=== PATIENT | female | born 2000 | race Caucasian/White ===

== ENCOUNTER 2023-04-09 19:36 | Emergency (ER) | payer BC, SELFPAY ==
--- NOTE | 2023-04-09 | ECG_ITS ---
Test Reason : WEAKNESS Blood Pressure : / mmHG Vent. Rate : 090 BPM Atrial Rate : 090 BPM P-R Int : 128 ms QRS Dur : 084 ms QT Int : 364 ms P-R-T Axes : 062 031 017 degrees QTc Int : 445 ms Normal sinus rhythm Normal ECG No previous ECGs available Referred By: Generic ED Physician Electronically Signed By:Murali Horton
[2023-04-09 19:42] VITALS: BP 100/70; PULSE 90; O2SAT 99; BMI 16.4
--- NOTE | 2023-04-09 20:03 | ED_ITS ---
HPI - Weakness General Chief complaint: Weakness Stated complaint: chronic fatigue symptoms, unable to walk Time Seen by Provider: 04/09/23 19:37 Source: patient Mode of arrival: ambulatory Limitations: no limitations History of Present Illness HPI Narrative: Patient is a college student with history of chronic fatigue syndrome comes here as she feels very tired weak lethargic has in the past when she gets fatigue syndrome today was feeling more tired this patient came here no nausea no vomiting patient has been eating normally no fever no chills no abdominal pain no syncope denies any significant depression or anxiety Related Data Allergies Allergy/AdvReac Type Severity Reaction Status Date / Time No Known Allergies Allergy Verified 04/09/23 20:51 Review of Systems 2 Review of Systems: Yes all other systems are reviewed and are negative [facility] Past Medical History Medical History (Updated 04/09/23 @ 21:23 by Curt Holm MD) Chronic fatigue syndrome Social History Social History Advance Directives: No Advance Directives Information Provided: No Physical Exam 2 Vital Signs: Vital Signs: Last Vital Signs Pulse 106 H 04/09/23 20:45 BP 108/65 04/09/23 20:45 BMI result Body Mass Index 16.4 Appearance: Alert. Oriented X3. No acute distress. Thin built Eyes: PERRLA, No Nystagmus ENT: Pharynx normal. Oral Mucosa moist Neck: Normal inspection. Neck supple. CVS: Normal heart rate and rhythm. Pulses normal. Respiratory: No respiratory distress. Equal air entry bilateral, no wheezing/rales/rhonchi Abdomen: Soft and nontender. Bowel sounds are present, no mass palpable, no CVA tenderness Skin: Skin warm and dry. Normal skin color. Normal skin turgor. Extremities: No lower extremity edema. No calf tenderness Neuro: Oriented X 3. No motor deficit. No sensory deficit.No cerebellar signs , cranial nerves II-XII intact Medical Decision Making Medical Decision Making MDM Narrative: Patient chronic fatigue syndrome comes have any increased weakness labs are stable normal orthostatics patient does not want any medication was given IV fluids and to follow with PCP and keep drinking lot of fluids Lab Data MDM Lab Attestation statement: I reviewed the patient's lab results. 04/09/23 19:59 04/09/23 19:59 Labs: Lab Results 04/09/23 Range/Units 19:59 WBC 5.5 (4.8-10.8) X10*3/uL RBC 4.21 (4.20-5.50) X10*6/uL Hgb 13.0 (12.0-16.0) g/dl Hct 38.5 (37.0-47.0) % MCV 91.4 (80.0-98.0) fL MCH 30.9 (27.0-33.0) pg MCHC 33.8 (31.0-35.0) g/dl RDW 11.6 (11.0-16.0) % Plt Count 275 (160-400) X10*3/uL MPV 8.8 L (9.4-12.3) fL Immature Gran % (Auto) 0.2 (0.0-0.4) % Neut % (Auto) 47.6 (45-73) % Lymph % (Auto) 37.3 (20-40) % Potter % (Auto) 12.8 H (2-11) % Eos % (Auto) 1.6 (0-4) % Baso % (Auto) 0.5 (0-2) % Lymph # (Auto) 2.1 (1.2-4.9) X10*3/uL Potter # (Auto) 0.7 (0.1-1.2) X10*3/uL Eos # (Auto) 0.1 (0.0-0.4) X10*3/uL Baso # (Auto) 0.0 (0.0-0.2) X10*3/uL Abs Immat Gran (auto) 0.01 (0.00-0.03) X10*3/uL Absolute Neuts (auto) 2.6 (2.0-8.3) x10*3/uL Absolute Nucleated RBC 0.000 (0.0-0.012) X10*3/uL Nucleated RBC % (auto) 0.0 (0.0-0.2) /100WBC Sodium 137 (135-145) mmol/L Potassium 4.0 (3.3-5.1) mmol/L Chloride 102 (96-108) mmol/L Carbon Dioxide 24 (22-29) mmol/L Anion Gap 15 (12-20) BUN 14 (9-16) mg/dL Creatinine 0.67 (0.5-1.4) mg/dL Estim Creat Clear Calc 83.4 Estimated GFR > 60 Random Glucose 98 (60-115) mg/dL Calcium 9.3 (8.4-10.2) mg/dL Total Bilirubin 0.5 (0.0-1.0) mg/dL AST 22 (5-31) U/L ALT 13 (0-31) U/L Alkaline Phosphatase 69 (39-117) U/L Total Protein 7.5 (6.5-8.0) g/dL Albumin 4.4 (3.5-5.0) g/dL Influenza Type A (PCR) NEGATIVE (Negative) Influenza Type B (PCR) NEGATIVE (Negative) RSV RNA Qual (PCR) NEGATIVE (Negative) SARS-CoV-2 RNA (RT-PCR) NEGATIVE (Negative) Discharge Plan Discharge Clinical Impression: Chronic fatigue syndrome Patient Disposition: Home, Self-Care Instructions: Chronic Fatigue Syndrome (ED) Additional Instructions: Drink plenty of fluids Tylenol/Motrin for pain Follow with PCP
[2023-04-09 20:04] LABS: MANUAL DIFF FLAG NO
[2023-04-09 20:06] LABS: Basophils Percent Auto 0.5 % (0-2); Eosinophils Absolute Auto 0.1 X10*3/uL (0.0-0.4); Eosinophils Percent Auto 1.6 % (0-4); Hematocrit 38.5 % (37.0-47.0); Imm Gran Abs Auto 0.01 X10*3/uL (0.00-0.03); Imm Gran Pct Auto 0.2 % (0.0-0.4); Lymphocytes Absolute Auto 2.1 X10*3/uL (1.2-4.9); Lymphocytes Percent Auto 37.3 % (20-40); Mean Corpuscular HGB Conc 33.8 g/dl (31.0-35.0); Mean Corpuscular Hemoglobin 30.9 pg (27.0-33.0); Mean Corpuscular Volume 91.4 fL (80.0-98.0); Mean Platelet Volume 8.8 fL (9.4-12.3); Monocytes Absolute Auto 0.7 X10*3/uL (0.1-1.2); Monocytes Percent Auto 12.8 % (2-11); Neutrophils Absolute Auto 2.6 x10*3/uL (2.0-8.3); Neutrophils Percent Auto 47.6 % (45-73); Platelet Count 275 X10*3/uL (160-400); Red Blood Count 4.21 X10*6/uL (4.20-5.50); Red Cell Distribution Width 11.6 % (11.0-16.0); White Blood Count 5.5 X10*3/uL (4.8-10.8)
[2023-04-09 20:28] LABS: Alanine Aminotransferase 13 U/L (0-31); Albumin Level 4.4 g/dL (3.5-5.0); Alkaline Phosphatase 69 U/L (39-117); Anion Gap 15 (12-20); Aspartate Amino Transferase 22 U/L (5-31); Bilirubin Total 0.5 mg/dL (0.0-1.0); Blood Urea Nitrogen 14 mg/dL (9-16); Calcium 9.3 mg/dL (8.4-10.2); Carbon Dioxide 24 mmol/L (22-29); Chloride 102 mmol/L (96-108); Creatinine Clr Calc Pharmacy 83.4; Estimated Glomerular Filt Rate > 60; Glucose Random 98 mg/dL (60-115); Sodium 137 mmol/L (135-145); Total Protein 7.5 g/dL (6.5-8.0)
[2023-04-09 20:42] LABS: Influenza A PCR NEGATIVE (Negative); Influenza B PCR NEGATIVE (Negative); Resp Syncy Virus RNA Qual PCR NEGATIVE (Negative); SARS COV2 PCR INHOUSE NEGATIVE (Negative)
[2023-04-09 20:43] VITALS: BP 103/63; PULSE 82
[2023-04-09 20:44] VITALS: BP 111/64; PULSE 96
[2023-04-09 20:45] VITALS: BP 108/65; PULSE 106
== END 2023-04-09 21:28 | disposition home or self-care (01) ==
PROVIDERS: Emergency Provider Internal Medicine
DX: G93.32 Myalgic encephalomyelitis/chronic fatigue syndrome (principal); R53.1 Weakness; R26.81 Unsteadiness on feet; Z20.822 Contact with and (suspected) exposure to COVID-19; Z20.828 Contact with and (suspected) exposure to other viral communicable diseases; Z79.899 Other long term (current) drug therapy
CPT/HCPCS: 0241U; 36415; 80053; 85025; 93005; 99283; 99284

== ENCOUNTER → 2023-04-09 19:48 | Outpatient (BNV) | payer SELFPAY | PROVIDERS: Emergency Provider Internal Medicine; Visit Provider Internal Medicine Cardiovascular Disease | DX: R53.1 Weakness (principal) | CPT/HCPCS: 93010 ==

== ENCOUNTER 2023-05-22 11:14 | Outpatient (AMB) | payer BC, SELFPAY ==
--- NOTE | 2023-05-22 11:22 | A.OFFVIS_ITS ---
Intake Vital Signs 05/22/23 11:31 Height 5 ft 1 in Weight 88 lb 6 oz BMI 16.7 BP 112/64 Blood Pressure Location Lt brachial Position Sitting Pulse 97 Pulse Source Pulse Oximeter Pulse Oximetry (%) 100 Oxygen Delivery Method Room Air Intake Visit Reasons: ENP-Fatigue - CONF Intake Note: Patient presents feeling fatigue a lot Allergies No Known Allergies Allergy (Verified 05/22/23 11:26) HPI HPI Comments History of Present Illness Details 22 y/o female patient presents for new i n-person visit for sleep consultation. Pt reports that she was diagnosed with chronic fatigue syndrome 5 years ago. Pt states that she needs to sleep at least 11 hrs at night or she gets really tired, can't function well. She feesl tired, exhausted all the time. She sleeps 11 hrs but wakes up tired, and has hard time to get out of bed. She can't have morning class, she missed a lot of morning class due to tiredness. Pt reports she recently had labs, and she was told that everything was normal. Pt has hx of IBS. She gets nauseous and usually eats frequent small meals. Pt reports her depression manages well with escitalopram 20 mg daily. Sleep questionnaire: Have you ever been diagnosed with a sleep disorder? No. Have you ever had a sleep study in the past? No Have you ever been treated for a sleep disorder? No. Do you take medications for a sleep disorder? No. Do you snore? No. Do you wake up gasping at night? No. Do you have episodes of apneas? No. If yes, are they witnessed? No. Do you have episodes of nocturnal chest pain or dyspnea? No. Do you have difficulty initiating sleep? No. Do you have difficulty maintaining sleep? No. Do you wake up tired? Yes. Do you have headaches upon awakening? Yes. Do you wake up with dry mouth or throat? Occasionally. Do you have GERD? Yes, sometimes. Do you have nocturia? Yes, 1-2 times. Do you have nocturnal leg cramps? Yes, sometimes. Do you have symptoms of restless legs? Yes, sometimes. Do you act out your dreams? No. Sleep hygiene questionnaire: What is your usual sleep routine? Usual bedtime is at 11 pm; Usual wake up time is at 11:30 am. Do you take naps? Yes, sometimes. Is your sleep environment cool, dark, and quiet? Yes. Do you exercise? Yes, dancing, once - twice. it is much less than before due to tiredness. Do you take caffeine or other stimulants? Tea. Do you use electronics in bed? Yes, sometimes. What is your work schedule? in the afternoon. Hypersomnolence questionnaire: Do you have daytime tiredness or fatigue? Yes, all day time. Do you easily fall asleep when inactive? No. Have you ever had episodes of sudden weakness? No. Have you ever had episodes of sudden weakness associated with strong emotions? No. PFSH Medical History (Updated 05/22/23 @ 12:00 by Kailey Bowman CNP) Chronic fatigue syndrome Family History (Updated 05/22/23 @ 11:31 by Maylin Kwan CMA) Mother Vertigo Social History (Updated 05/22/23 @ 11:29 by Maylin Kwan CMA) Alcohol intake: current Comment: 1 glass a week Patient Tobacco Use Status: Never used Tobacco Review of Systems Const All systems reviewed & are unremarkable except as noted in HPI and below Physical Exam Vital Signs: Last Vital Signs Pulse 97 05/22/23 11:31 BP 112/64 05/22/23 11:31 Pulse Ox 100 05/22/23 11:31 Oxygen Delivery Method Room Air 05/22/23 11:31 BMI result Body Mass Index 16.7 Const General: cooperative Nutritional Appearance: thin Orientation/consciousness: patient oriented x3 Neck Neck: Yes full ROM and Yes supple Resp Effort & Inspection: normal respiratory effort and able to speak in complete sentences Neuro General: patient oriented x3 and gait normal Cranial nerves: Yes CN's II-XII intact bilaterally Cognition (Neuro): normal cognition Gait exam (Neuro): Normal gait present Motor exam (neuro): 5/5 motor strength present throughout Psych Appearance: grossly normal Assessment & Plan Assessment & Plan (1) Daytime sleepiness: Code(s): R40.0 - Somnolence (2) Fatigue: Code(s): R53.83 - Other fatigue Plan Pt is advised to undergo home sleep study to assess for sleep apnea. Will f/u with pt after study to discuss results and appropriate treatment options. Pt to call with any worsening concerns or questions. Orders: Orders RT home sleep study 05/22/23 R40.0 - Somnolence, R53.83 - Other fatigue Coding Level of Care Code New Pt Level 3 (90278) Diagnoses Daytime sleepiness R40.0 Fatigue R53.83
[2023-05-22 11:31] VITALS: BP 112/64; PULSE 97; O2SAT 100; BMI 16.7
== END 2023-05-22 12:04 | disposition home or self-care (01) ==
PROVIDERS: PCP Nurse Practitioner Family; Visit Provider Nurse Practitioner Family
DX: R40.0 Somnolence (principal); R53.83 Other fatigue
CPT/HCPCS: 99203

== ENCOUNTER → 2023-05-22 11:14 | Outpatient (BNVA) | payer BC, SELFPAY | PROVIDERS: PCP Nurse Practitioner Family; Visit Provider Nurse Practitioner Family ==